=== PATIENT | female | born 2000 | race Hispanic/Latino ===

== ENCOUNTER 2019-11-21 12:49 | Inpatient (IN) | payer OTHER, MEDICAID ==
[2019-11-22] MEDS ORDERED: traZODone 50 MG TAB As Ordered ONE (23:08)
[2019-11-23] MEDS ORDERED: ACETAMINOPHEN TAB 650MG DOSE (2X325MG) As Ordered ONE (13:09)
[2019-11-23] MEDS ORDERED: SERTRALINE HCL 25 MG TABLET As Ordered ONE (21:11)
[2019-11-24] MEDS ORDERED: SERTRALINE HCL 25 MG TABLET As Ordered ONE (09:47)
[2019-11-24] MEDS ORDERED: MAALOX 30 ML SUSP *UDC PO PRN (17:00)
[2019-11-24] MEDS ORDERED: hydrOXYzine 50 MG TAB PO PRN (17:00)
[2019-11-24] MEDS ORDERED: MOM 30ML SUSPENSION UDC PO PRN (17:00)
[2019-11-24] MEDS ORDERED: traZODone 50 MG TAB PO PRN (17:00)
[2019-11-24] MEDS ORDERED: OLANZapine ORAL DISINTEGRATING TAB 5MG PO PRN (17:00)
[2019-11-24] MEDS ORDERED: ACETAMINOPHEN TAB 650MG DOSE (2X325MG) PO PRN (17:00)
[2019-11-25 06:14] VITALS: BP 111/68
[2019-11-25] MEDS ORDERED: SERTRALINE HCL 25 MG TABLET PO SCH (09:00)
[2020-01-04 14:55] LABS: BASO # 0.1 10^3/uL (0.0-0.2); BASO % 0.6 % (0.0-1.0); EOS # 1.1 10^3/uL (0.0-0.5); HEMATOCRIT 41.4 % (36.0-47.0); HEMOGLOBIN 14.1 g/dl (12.0-15.5); LYMPH % 32.8 % (24.0-44.0); MEAN CORPUSCULAR HEMOGLOBIN 32.3 pg (27.0-33.0); MEAN CORPUSCULAR HGB CONC 34.1 g/dl (32.0-36.5); MEAN CORPUSCULAR VOLUME 94.7 fl (80.0-96.0); MONO # 0.6 10^3/uL (0.0-0.8); MONO % 4.8 % (0.0-5.0); NEUTROPHILS # 6.3 10^3/uL (1.5-8.5); NEUTROPHILS % 52.4 % (36.0-66.0); PLATELET COUNT, AUTOMATED 259 10^3/uL (150-450); RED BLOOD COUNT 4.37 10^6/uL (4.00-5.40)
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
[2020-02-14 11:48] LABS: AMPHETAMINES LEVEL URINE NEGATIVE (NEGATIVE); BARBITURATES URINE NEGATIVE (NEGATIVE); BENZODIAZEPINES URINE NEGATIVE (NEGATIVE); BLOOD UREA NITROGEN 8 MG/DL (7-18); CALCIUM LEVEL 9.4 MG/DL (8.5-10.1); CANNABINOIDS URINE POSITIVE (NEGATIVE); CARBON DIOXIDE LEVEL 22 MEQ/L (21-32); CHLORIDE LEVEL 111 MEQ/L (98-107); COCAINE METABOLITE URINE POSITIVE (NEGATIVE); CREATININE FOR GFR 0.77 MG/DL (0.55-1.30); GLOMERULAR FILTRATION RATE > 60.0 (>60); GLUCOSE, FASTING 93 MG/DL (70-100); METHADONE URINE NEGATIVE (NEGATIVE); OPIATES URINE NEGATIVE (NEGATIVE); PHENCYCLIDINE URINE NEGATIVE (NEGATIVE); POTASSIUM SERUM 4.2 MEQ/L (3.5-5.1); SODIUM LEVEL 143 MEQ/L (136-145)
[2020-02-14 12:05] LABS: HCG, SERUM QUALITATIVE NEGATIVE (NEGATIVE)
== END 2019-11-25 12:52 | disposition home or self-care (01) | DRG 754 ==
LOC: M ED 12:49 → M PSY 11-22 00:30
PROVIDERS: ADMIT Psychiatry & Neurology Psychiatry; ATTEND Psychiatry & Neurology Psychiatry
DX: F32.9 Major depressive disorder, single episode, unspecified (principal)

== ENCOUNTER 2020-09-28 15:57 | Emergency (ER) | payer OTHER, MEDICAID ==
[~2020-09-28] VITALS: Ht 157.5 cm; Wt 72.3 kg
[2020-09-28 16:01] VITALS: BP 156/86
== END 2020-09-28 18:18 | disposition left against medical advice (07) ==
LOC: M ED 15:57
DX: Z53.21 Procedure and treatment not carried out due to patient leaving prior to being seen by health care provider (principal)

== ENCOUNTER 2020-10-28 02:05 | Emergency (ER) | payer OTHER, MEDICAID ==
[~2020-10-28] VITALS: Ht 157.5 cm; Wt 73.6 kg
[2020-10-28 02:47] LABS: HEMATOCRIT 39.3 % (36.0-47.0); HEMOGLOBIN 13.5 g/dl (12.0-15.5); MEAN CORPUSCULAR HEMOGLOBIN 32.3 pg (27.0-33.0); MEAN CORPUSCULAR HGB CONC 34.4 g/dl (32.0-36.5); PLATELET COUNT, AUTOMATED 211 10^3/uL (150-450); RED BLOOD COUNT 4.18 10^6/uL (4.00-5.40); WHITE BLOOD COUNT 10.7 10^3/uL (4.0-10.0)
[2020-10-28 03:36] LABS: AMPHETAMINES LEVEL URINE NEGATIVE (NEGATIVE); BARBITURATES URINE NEGATIVE (NEGATIVE); BENZODIAZEPINES URINE NEGATIVE (NEGATIVE); CANNABINOIDS URINE POSITIVE (NEGATIVE); COCAINE METABOLITE URINE POSITIVE (NEGATIVE); METHADONE URINE NEGATIVE (NEGATIVE); OPIATES URINE NEGATIVE (NEGATIVE); PHENCYCLIDINE URINE NEGATIVE (NEGATIVE)
[2020-10-28 03:49] LABS: ACETAMINOPHEN LEVEL < 2.0 UG/ML (10.0-30.0); ALBUMIN 4.1 GM/DL (3.2-5.2); ALT/SGPT 497 U/L (12-78); BILIRUBIN,DIRECT 0.3 MG/DL (0.0-0.2); BILIRUBIN,TOTAL 0.7 MG/DL (0.2-1.0); BLOOD UREA NITROGEN 7 MG/DL (7-18); CALCIUM LEVEL 8.7 MG/DL (8.5-10.1); CARBON DIOXIDE LEVEL 26 MEQ/L (21-32); CHLORIDE LEVEL 103 MEQ/L (98-107); CREATININE FOR GFR 0.63 MG/DL (0.55-1.30); ETHYL ALCOHOL (ETHANOL) < 0.003 % (0.000-0.010); GLOMERULAR FILTRATION RATE > 60.0 (>60); GLUCOSE, FASTING 102 MG/DL (70-100); POTASSIUM SERUM 3.6 MEQ/L (3.5-5.1); SALICYLATE LEVEL 1.7 MG/DL (5.0-30.0); SODIUM LEVEL 139 MEQ/L (136-145); TOTAL PROTEIN 7.4 GM/DL (6.4-8.2)
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
[2020-10-28 05:11] VITALS: BP 133/95
--- NOTE | 2020-10-29 21:12 | ECGEPIP ---
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
== END 2020-10-28 05:46 | disposition home or self-care (01) ==
LOC: M ED 02:05
DX: F43.20 Adjustment disorder, unspecified (principal); F12.20 Cannabis dependence, uncomplicated; F14.20 Cocaine dependence, uncomplicated; F33.9 Major depressive disorder, recurrent, unspecified; F41.9 Anxiety disorder, unspecified

== ENCOUNTER 2020-11-23 09:30 | Emergency (ER) | payer MEDICAID, OTHER ==
[~2020-11-23] VITALS: Ht 157.5 cm; Wt 71.4 kg
[2020-11-23] MEDS ORDERED: SERT-141 PO (09:38)
[2020-11-23 11:28] LABS: HEMATOCRIT 40.1 % (36.0-47.0); HEMOGLOBIN 13.3 g/dl (12.0-15.5); MEAN CORPUSCULAR HEMOGLOBIN 32.9 pg (27.0-33.0); MEAN CORPUSCULAR HGB CONC 33.2 g/dl (32.0-36.5); MEAN CORPUSCULAR VOLUME 99.3 fl (80.0-96.0); PLATELET COUNT, AUTOMATED 229 10^3/uL (150-450); RED BLOOD COUNT 4.04 10^6/uL (4.00-5.40)
[2020-11-23 11:41] LABS: AMPHETAMINES LEVEL URINE NEGATIVE (NEGATIVE); BARBITURATES URINE NEGATIVE (NEGATIVE); BENZODIAZEPINES URINE NEGATIVE (NEGATIVE); CANNABINOIDS URINE POSITIVE (NEGATIVE); COCAINE METABOLITE URINE POSITIVE (NEGATIVE); METHADONE URINE NEGATIVE (NEGATIVE); OPIATES URINE NEGATIVE (NEGATIVE); PHENCYCLIDINE URINE NEGATIVE (NEGATIVE)
[2020-11-23 11:57] LABS: HCG, SERUM QUALITATIVE NEGATIVE (NEGATIVE)
[2020-11-23 12:13] LABS: ACETAMINOPHEN LEVEL < 2.0 UG/ML (10.0-30.0); ALBUMIN 3.8 GM/DL (3.2-5.2); ALT/SGPT 888 U/L (12-78); BILIRUBIN,DIRECT 0.1 MG/DL (0.0-0.2); BILIRUBIN,TOTAL 0.3 MG/DL (0.2-1.0); BLOOD UREA NITROGEN 11 MG/DL (7-18); CALCIUM LEVEL 8.6 MG/DL (8.5-10.1); CARBON DIOXIDE LEVEL 24 MEQ/L (21-32); CHLORIDE LEVEL 113 MEQ/L (98-107); ETHYL ALCOHOL (ETHANOL) 0.252 % (0.000-0.010); GLOMERULAR FILTRATION RATE > 60.0 (>60); GLUCOSE, FASTING 122 MG/DL (70-100); POTASSIUM SERUM 3.7 MEQ/L (3.5-5.1); SALICYLATE LEVEL 2.2 MG/DL (5.0-30.0); SODIUM LEVEL 143 MEQ/L (136-145); TOTAL PROTEIN 7.6 GM/DL (6.4-8.2)
[2020-11-23] MEDS ORDERED: PREN29CH2 PO (20:30)
[2020-11-23] MEDS ORDERED: HOME MED LIST COMPLETE! XX SCH (20:35)
[2020-11-23 21:42] VITALS: BP 131/84
== END 2020-11-23 21:44 | disposition home or self-care (01) ==
LOC: M ED 09:30
DX: F10.10 Alcohol abuse, uncomplicated (principal); F15.10 Other stimulant abuse, uncomplicated; F43.20 Adjustment disorder, unspecified; F33.9 Major depressive disorder, recurrent, unspecified; F17.210 Nicotine dependence, cigarettes, uncomplicated; Z79.899 Other long term (current) drug therapy

== ENCOUNTER 2021-10-30 09:51 | Emergency (ER) | payer OTHER ==
[~2021-10-30] VITALS: Ht 157.5 cm; Wt 75.7 kg
[2021-10-30 09:51] VITALS: BP 129/93
[~2021-10-30 09:51] MED LIST: PREN29CH2 PO; SERT-141 PO
[2021-10-30 11:35] LABS: RSV AMPLIFICATION NEGATIVE (NEGATIVE)
== END 2021-10-30 12:03 | disposition home or self-care (01) ==
LOC: M ED 09:51
DX: U07.1 COVID-19 (principal); F41.9 Anxiety disorder, unspecified; F32.A Depression, unspecified; F17.200 Nicotine dependence, unspecified, uncomplicated; Z79.899 Other long term (current) drug therapy

== ENCOUNTER 2022-11-08 01:06 | Inpatient (IN) | payer OTHER ==
[~2022-11-08] VITALS: Ht 160 cm; Wt 86.9 kg
[2022-11-08 02:01] LABS: HEMATOCRIT 40.2 % (36.0-47.0); HEMOGLOBIN 13.2 g/dl (12.0-15.5); MEAN CORPUSCULAR HEMOGLOBIN 31.4 pg (27.0-33.0); MEAN CORPUSCULAR HGB CONC 32.8 g/dl (32.0-36.5); MEAN CORPUSCULAR VOLUME 95.7 fl (80.0-96.0); PLATELET COUNT, AUTOMATED 192 10^3/uL (150-450); WHITE BLOOD COUNT 13.5 10^3/uL (4.0-10.0)
[2022-11-08 02:14] LABS: BARBITURATES URINE NEGATIVE (NEGATIVE); COCAINE METABOLITE URINE NEGATIVE (NEGATIVE); METHADONE URINE NEGATIVE (NEGATIVE); OPIATES URINE NEGATIVE (NEGATIVE); PHENCYCLIDINE URINE NEGATIVE (NEGATIVE)
[2022-11-08 02:15] LABS: AMPHETAMINES LEVEL URINE NEGATIVE (NEGATIVE); BENZODIAZEPINES URINE NEGATIVE (NEGATIVE)
[2022-11-08 02:16] LABS: CANNABINOIDS URINE POSITIVE (NEGATIVE)
[2022-11-08 02:18] LABS: ACETAMINOPHEN LEVEL < 2.0 UG/ML (10.0-20.0); ALKALINE PHOSPHATASE 190 U/L (46-116); ALT/SGPT 136 U/L (7.0-40); AST/SGOT 209 U/L (<34); BILIRUBIN,DIRECT 0.3 MG/DL (<0.4); BILIRUBIN,TOTAL 0.6 MG/DL (0.3-1.2); BLOOD UREA NITROGEN 6 MG/DL (9-23); CALCIUM LEVEL 9.2 MG/DL (8.5-10.1); CARBON DIOXIDE LEVEL 24 MMOL/L (20-31); CHLORIDE LEVEL 111 MMOL/L (98-107); CREATININE FOR GFR 0.66 MG/DL (0.55-1.30); GLOMERULAR FILTRATION RATE > 60.0 (>60); GLUCOSE, FASTING 118 MG/DL (60-100); POTASSIUM SERUM 3.8 MMOL/L (3.5-5.1); SALICYLATE LEVEL < 3.0 MG/DL (<30); SODIUM LEVEL 146 MMOL/L (136-145); TOTAL PROTEIN 7.9 G/DL (5.7-8.2)
[2022-11-08 02:21] LABS: THYROID STIMULATING HORMONE 2.911 uIU/ML (0.55-4.78)
[2022-11-08 03:08] LABS: ETHYL ALCOHOL (ETHANOL) 0.358 % (0.000-0.010)
[2022-11-08] MEDS ORDERED: MED REC CURRENTLY UNOBTAINABLE XX SCH (03:40)
[2022-11-08] MEDS ORDERED: IBUPROFEN 400MG TAB PO PRN (15:45)
[2022-11-08] MEDS ORDERED: MAALOX 30 ML SUSP *UDC PO PRN (15:45)
[2022-11-08] MEDS ORDERED: MOM 30ML SUSPENSION UDC PO PRN (15:45)
[2022-11-08] MEDS ORDERED: ACETAMINOPHEN TAB 650MG DOSE (2X325MG) PO PRN (15:45)
[2022-11-08] MEDS ORDERED: LORazepam 2 MG TAB PO PRN (15:45)
[2022-11-08] MEDS ORDERED: traZODone 50 MG TAB PO PRN (15:45)
[2022-11-08] MEDS ORDERED: diphenhydrAMINE 25MG CAP PO PRN (15:45)
[2022-11-08 17:16] VITALS: BP 131/74; TEMP 97.7; O2SAT 95
[2022-11-08] MEDS ORDERED: MED REC IN PROGRESS XX SCH (17:40)
[2022-11-08] MEDS ORDERED: CLAR10TA7 PO (17:45)
[2022-11-08] MEDS ORDERED: DIPH-435 PO (17:45)
[2022-11-08] MEDS ORDERED: SERT50TA29 PO (17:46)
[2022-11-08] MEDS ORDERED: HOME MED LIST COMPLETE! XX SCH (18:00)
[2022-11-08] MEDS: THIAMINE 100 MG TAB PO SCH (18:11)
[2022-11-08 22:44] VITALS: BP 133/87
[2022-11-08] MEDS ORDERED: NICOTINE 14 MG/24 HR TRANSDERMAL TD PRN (23:15)
[2022-11-09 06:05] VITALS: BP 122/57; TEMP 98; O2SAT 96
[2022-11-09] MEDS: MULTIVITAMINS/MINERALS THERAP 1 TAB PO SCH (08:07)
[2022-11-09] MEDS: FOLIC ACID 1MG TAB PO SCH (08:07)
[2022-11-09] MEDS: busPIRone 5 MG TAB PO SCH ×2 (08:07→20:30)
[2022-11-09] MEDS: SERTRALINE HCL 50 MG TAB PO SCH (08:07)
[2022-11-09] MEDS: THIAMINE 100 MG TAB PO SCH ×2 (08:07→20:30)
[2022-11-09 09:31] LABS: HEPATITIS B CORE ANTIBODY IGM NEGATIVE (NEGATIVE); HEPATITIS C VIRUS ABY INDEX 0.14 INDEX (<0.8)
[2022-11-09 14:31] VITALS: BP 140/86
[2022-11-09 14:37] VITALS: BP 140/86; TEMP 97.4; O2SAT 100
[2022-11-09 23:40] VITALS: BP 136/92
[2022-11-10 04:00] VITALS: BP 135/74
[2022-11-10 06:32] VITALS: BP 133/88; TEMP 99.1; O2SAT 96
[2022-11-10 08:00] VITALS: BP 133/88
[2022-11-10] MEDS: busPIRone 5 MG TAB PO SCH ×2 (08:26→20:21)
[2022-11-10] MEDS: MULTIVITAMINS/MINERALS THERAP 1 TAB PO SCH (08:26)
[2022-11-10] MEDS: SERTRALINE HCL 50 MG TAB PO SCH (08:26)
[2022-11-10] MEDS: FOLIC ACID 1MG TAB PO SCH (08:26)
[2022-11-10] MEDS: THIAMINE 100 MG TAB PO SCH ×2 (08:26→20:21)
[2022-11-10 16:08] VITALS: BP 135/74; TEMP 98.1; O2SAT 98
[2022-11-11 06:41] VITALS: BP 123/56; TEMP 97; O2SAT 98
[2022-11-11 06:42] VITALS: BP 123/56
[2022-11-11] MEDS: FOLIC ACID 1MG TAB PO SCH (08:28)
[2022-11-11] MEDS: SERTRALINE HCL 50 MG TAB PO SCH (08:28)
[2022-11-11] MEDS: MULTIVITAMINS/MINERALS THERAP 1 TAB PO SCH (08:28)
[2022-11-11] MEDS: busPIRone 5 MG TAB PO SCH ×2 (08:29→20:29)
[2022-11-11] MEDS: THIAMINE 100 MG TAB PO SCH (08:29)
[2022-11-11 16:07] VITALS: BP 133/73; TEMP 97.2; O2SAT 98
[2022-11-12 06:10] VITALS: BP 131/74; TEMP 99.1; O2SAT 97
[2022-11-12] MEDS ORDERED: SERT50TA29 PO (06:59)
[2022-11-12] MEDS ORDERED: BUSP5TA PO (06:59)
[2022-11-12] MEDS ORDERED: NICO14PA TD (06:59)
[2022-11-12] MEDS: FOLIC ACID 1MG TAB PO SCH (08:27)
[2022-11-12] MEDS: SERTRALINE HCL 50 MG TAB PO SCH (08:27)
[2022-11-12] MEDS: busPIRone 5 MG TAB PO SCH (08:27)
[2022-11-12] MEDS: MULTIVITAMINS/MINERALS THERAP 1 TAB PO SCH (08:27)
== END 2022-11-12 13:38 | disposition home or self-care (01) | DRG 754 ==
LOC: M ED 01:06 → M ED INP 15:41 → M PSY 16:37
PROVIDERS: ADMIT Student in an Organized Health Care Education/Training Program; ATTEND Student in an Organized Health Care Education/Training Program
DX: F32.A Depression, unspecified (principal); F10.24 Alcohol dependence with alcohol-induced mood disorder; F10.229 Alcohol dependence with intoxication, unspecified; F17.210 Nicotine dependence, cigarettes, uncomplicated; Z63.4 Disappearance and death of family member; Z91.410 Personal history of adult physical and sexual abuse; Z56.0 Unemployment, unspecified; Z79.899 Other long term (current) drug therapy; R74.01 Elevation of levels of liver transaminase levels